=== PATIENT | female | born 1995 | race Caucasian/White ===

== ENCOUNTER 2024-04-04 12:04 | Emergency (ER) | payer OTHER, SELFPAY ==
--- NOTE | ~2024-04-04 | US_ITS ---
EXAMINATION: US OB <=14 wk fetus w TV, US OB <= 14 wk fetus add gest DATE: 04/04/2024 17:02 INDICATION: Lower pelvic and back pain during first trimester . TECHNIQUE: Real-time pelvic ultrasound utilizing both a transvaginal and transabdominal probe was pe rformed. The interpreting radiologist was not present for the study. COMPARISON: None. FINDINGS: The uterus measures 8.6 x 5.9 x 7.1 cm. There are 2 separate intrauterine gestational sacs by a thick membrane consistent with dichorionic, diamniotic . There is a 6 x 4 mm hypoecho ic likely subchorionic hematoma within the thickened intervening membrane. A yolk sac and pole are identified in each gestational sac. The crown rump length for fetus A in the more caudal sac measures 2-3 mm, which correlates with an es timated gestational age of 5 weeks and 5 days. heart motion is identified measuring 96 beats pe r minute (bpm) by M-mode Doppler. The crown rump length for fetus A in the sac positioned closer to the fundus measures 2-3 mm, which c orrelates with an estimated gestational age of 5 weeks and 5 days. heart motion is identified m easuring 129 beats per minute (bpm) by M-mode Doppler. The right ovary measures 3.3 x 1.9 x 2.5 cm. The left ovary measures 2.5 x 2.4 x 2.3 cm. Vascular alex w identified in both ovaries on color Doppler. There is no free fluid in the pelvis. IMPRESSION: 1. Dichorionic, diamnionic with 2 living fetuses. 2. Gestational age by ultrasound of 5 weeks 5 day(s) +/- 3 day(s) with ultrasound estimated date of delivery (DANIEL) of 11/30/2024. 3. Small subchorionic hematoma along the thickened membrane the 2 gestational sacs. Reviewed, dictated and finalized at location A. IMPRESSION: 1. Dichorionic, diamnionic with 2 living fetuses. 2. Gestational age by ultrasound of 5 weeks 5 day(s) +/- 3 day(s) with ultraso und estimated date of delivery (DANIEL) of 11/30/2024. 3. Small subchorionic hematoma along the thickened membrane the 2 ge stational sacs.
[2024-04-04 12:06] VITALS: BP 127/83; PULSE 108; RESP 16; TEMP 36.2; O2SAT 100
--- NOTE | 2024-04-04 14:51 | ED.ABDPAIN ---
HPI - Abdominal Pain General Chief Complaint: Abdominal Pain <FRANCISCO Kim Last Filed: 04/04/24 14:57> Stated Complaint: 5 wks preg, cramping <FRANCISCO Kim Last Filed: 04/04/24 14:57> Time Seen by Provider: 04/04/24 14:52 <FRANCISCO Kim Last Filed: 04/04/24 14:57> Focused HPI: Patient is a 28 y/o female who presents to the ED with c/o lower abdominal cramping. Patient reports she is currently around 5 weeks gestation. . Had a positive test last Monday. LNMP was 02/23. Typically has regular cycles. States over the last few days, has had cramping throughout her lower abdomen, worse on the R side. Does also report nausea over the past few days, denies vomiting, vaginal bleeding, fevers, urinary complaints. Patient does not currently have an OBGYN. GENERAL: Anxious-appearing, well-nourished, and in no acute distress. HEAD: Normocephalic, atraumatic. CHEST: Clear to auscultation. ?No respiratory distress. HEART: Regular rate and rhythm.? ABD: Minimal tenderness in lower abdomen. No focal tenderness. Normoactive BS. NEURO: ?Alert and oriented x3. Patient screened in triage and initial orders placed.? ?Additional care and disposition to be based upon?diagnostic testing and treatment. <FRANCISCO Kim Last Filed: 04/04/24 14:57> Source: patient <FRANCISCO Kim Last Filed: 04/04/24 14:57> Mode of arrival: ambulatory <FRANCISCO Kim Last Filed: 04/04/24 14:57> Limitations: no limitations <FRANCISCO Kim Last Filed: 04/04/24 14:57> History of Present Illness HPI narrative: Patient is a 28-year-old female, approximately 5 weeks by last menstrual. Here today with lower abdominal pain. She states that the pain began about a week ago and intensified about 4 days ago. It is currently more right-sided than left but does alternate between the right and left adnexal regions. She does note that she has had some diarrhea which began about 5 days ago. She is unsure if the abdominal pain changes at all with her bowel movements. No known sick contacts. Of note she is Rh negative, was offered RhoGAM in the past and was unsure if she ever received it. All of her prior pregnancies have been followed by a birthing center, she does not do regular care outside of the birthing center. She denies any vaginal bleeding. Denies any urinary symptoms. <Patricia Pena MD - Last Filed: 04/04/24 18:19> Related Data Allergies/Adverse Reactions: Allergies Allergy/AdvReac Type Severity Reaction Status Date / Time No Known Allergies Allergy Verified 04/04/24 12:08 <Mary Hanna PA-C - Last Filed: 04/04/24 14:57> Review of Systems Review of Systems: All systems reviewed & are unremarkable except as noted in HPI and below <Patricia Pena MD - Last Filed: 04/04/24 18:19> Exam Narrative: GENERAL: Well-appearing, well-nourished, and in no acute distress. HEAD: Normocephalic, atraumatic. EYES: PERRLA and EOMI. ENT: Nares clear. Mucous membranes moist. NECK: Supple. CHEST: Clear to auscultation. No respiratory distress. HEART: Regular rate and rhythm. Normal peripheral pulses. ABDOMEN: Soft, nontender, nondistended. EXTREMITIES: Normal range of motion. No edema. SKIN: Warm, dry, no rash. NEURO: No focal deficits. Alert and oriented x3. PSYCH: Normal mood and affect. <Patricia Pena MD - Last Filed: 04/04/24 18:19> Course Course Emergency Course: MSE performed in triage. Chart review performed by myself at 4:40 p.m.. Patient is a 28-year-old female here with lower abdominal cramping, believes she is 5 weeks , with the positive home test. Triage lab work reviewed, CBC unremarkable, stable hemoglobin. Electrolytes within normal limits, normal renal function, normal liver function tests. Beta hCG 57,[phone]. Blood type O negative. US pending
[2024-04-04 15:11] LABS: Basophils Percent Auto 0.4 % (0.2-1.2); Eosinophils Absolute Auto 0.1 K/mm3 (0-0.3); Eosinophils Percent Auto 0.6 % (0-4.4); Hemoglobin 14.5 g/dL (12.0-15.0); Immature Granulocyte Absolute 0.03 K/mm3 (0.00-0.031); Immature Granulocyte Percent A 0.4 % (0-0.5); Lymphocytes Absolute Auto 2.09 K/mm3 (0.9-3.2); Mean Corpuscular HGB Conc 35.4 g/dl (32-36); Mean Corpuscular Hemoglobin 31.8 pg (26-34); Mean Corpuscular Volume 89.9 fl (80-100); Mean Platelet Volume 9.8 fl (7.4-10.4); Monocytes Absolute Auto 0.4 K/mm3 (0.1-0.6); Monocytes Percent Auto 5.2 % (2.6-8.5); Neutrophils Absolute Auto 5.4 K/mm3 (1.3-6.7); Neutrophils Percent Auto 67.4 % (45.5-73.1); Platelet Count Result 193 k/mm3 (150-375); Red Blood Count 4.56 M/mm3 (4.2-5.4)
[2024-04-04 15:22] LABS: Alanine Aminotransferase 12 U/L (6-35); Albumin Level 4.5 g/dL (3.5-5.1); Alkaline Phosphatase 50 U/L (38-126); Anion Gap 8 mmol/L (4-12); Aspartate Amino Transferase 18 U/L (14-36); Bilirubin,Total 0.6 mg/dL (0.2-1.3); Blood Urea Nitrogen 12 mg/dL (7-17); Calcium 9.4 mg/dL (8.4-10.2); Carbon Dioxide 24 mmol/L (22-30); Chloride 106 mmol/L (98-107); Estimated CRCL calculation 98 ml/min; Estimated Glomerular Filt Rate > 60; Glucose 98 mg/dL (65-110); Potassium 4.3 mmol/L (3.4-5.0); Sodium 138 mmol/L (137-145)
[2024-04-04 15:24] LABS: Prothrombin Time 13.2 Seconds (11.1-14.7)
[2024-04-04 15:25] LABS: Partial Thromboplastin Time 28.8 Seconds (22.3-36.8)
[2024-04-04 15:30] VITALS: BP 124/78; PULSE 76; RESP 16; TEMP 36.7; O2SAT 100
[2024-04-04 17:10] VITALS: BP 124/80; PULSE 78; RESP 16; TEMP 36.6; O2SAT 100
[2024-04-04 17:50] LABS: Appearance Urine Clear (Clear); Bilirubin Urine Negative (Negative); Blood Urine Negative (Negative); Color Urine Yellow (Yellow); Glucose Urine UA Negative (Negative); Ketones Urine Negative (Negative); Leukocyte Esterase Ur Negative LEU/UL (Negative); Nitrate Urine Negative (Negative); Protein Urine Negative (Negative); Specific Grav Ur 1.006 (1.001-1.035); Urobilinogen Urine 0.2 mg/dL (<2.0); pH Urine 6.5 (5.0-9.0)
[2024-04-04 17:55] LABS: Add Urine Microscopic? NO
[2024-04-04 17:56] VITALS: BP 118/78; PULSE 78; RESP 16; TEMP 36.8; O2SAT 98
== END 2024-04-04 18:18 | disposition home or self-care (01) ==
PROVIDERS: Physician Assistant; Emergency Provider Student in an Organized Health Care Education/Training Program
DX: O41.8X10 Other specified disorders of amniotic fluid and membranes, first trimester, not applicable or unspecified (principal); O30.041 Twin pregnancy, dichorionic/diamniotic, first trimester; Z3A.01 Less than 8 weeks gestation of pregnancy
CPT/HCPCS: 36415; 76801; 76802; 76817; 80053; 81003; 84702; 85025; 85461; 85610; 85730; 86850; 86900; 86901; 90384; 96372; 99284; J2790